=== PATIENT | female | born 1985 | race Hispanic/Latino ===

== ENCOUNTER 2019-04-16 20:59 | Emergency (ER) | payer SELFPAY ==
[2019-04-16 22:03] LABS: Urine Blood NEGATIVE (NEG); Urine Glucose NEGATIVE (NEG); Urine Protein NEGATIVE (NEG); Urine Specific Gravity 1.025 (1.005-1.030)
[2019-04-16 22:07] LABS: Absolute Lymphocytes (CBC) 2.2 K/uL (0.7-4.9); Basophils % 0.4 % (0-1.3); Hematocrit 39.6 % (36.0-45.0); Lymphocytes % 27.4 % (15.3-44.8); MPV 7.8 fL (7.6-11.3); RBC Red Blood Cell Count 4.48 M/uL (3.86-4.86)
[2019-04-16 22:40] LABS: BUN Blood Urea Nitrogen 15 mg/dL (7-18); Bicarbonate 27 mmol/L (21-32); Glucose Level 86 mg/dL (74-106); HCG, Quantitative 945 mIU/mL (1-3); Potassium 3.6 mmol/L (3.5-5.1); Sodium Level 141 mmol/L (136-145)
--- NOTE | 2019-04-16 22:44 | ER ---
Nurse's Notes [facility] Name: Marline Jacobs Age: 33 yrs Sex: Female : 1985 Arrival Date: 04/16/2019 Time: 21:04 Bed 26 Private MD: Diagnosis: state Presentation: 04/16 21:13 Presenting complaint: Patient states: Abdominal pain that moves over her entire abdomen aj1 and pelvis for the past 4 days. Denies N/V/D. Patient reports that she found out this morning that she is , she is unsure how far along she is. Denies vaginal bleeding or discharge. Transition of care: patient was not received from another setting of care. Onset of symptoms was April 16, 2019. Risk Assessment: Do you want to hurt yourself or someone else? Patient reports no desire to harm self or others. Initial Sepsis Screen: Does the patient meet any 2 criteria? No. Patient's initial sepsis screen is negative. Does the patient have a suspected source of infection? No. Patient's initial sepsis screen is negative. Care prior to arrival: None. 21:13 Method Of Arrival: Ambulatory aj 21:13 Acuity: LAUREL 3 fc Triage Assessment: 21:14 General: Appears in no apparent distress. comfortable, Behavior is calm, cooperative, aj1 appropriate for age. Pain: Complains of pain in abdomen and pelvis Pain currently is 3 out of 10 on a pain scale. Neuro: Level of Consciousness is awake, alert, obeys commands. Cardiovascular: Patient's skin is warm and dry. Respiratory: Airway is patent Respiratory effort is even, unlabored, Respiratory pattern is regular, symmetrical. GI: Patient currently denies constipation, cramping, diarrhea, nausea, rectal bleeding, vomiting. : Denies discharge, vaginal bleeding. 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 - Social history:: Smoking status: Patient/guardian denies using tobacco, Patient/guardian denies using alcohol, street drugs. - Ebola Screening: : Patient denies travel to an Ebola-affected area in the 21 days before illness onset. Screenin:20 Abuse screen: Denies threats or abuse. Denies injuries from another. Nutritional ca1 screening: No deficits noted. Tuberculosis screening: No symptoms or risk factors identified. Fall Risk None identified. Assessment: 21:20 General: Appears in no apparent distress. comfortable, Behavior is calm, cooperative, ca1 appropriate for age. Pain: Complains of pain in right lower quadrant and pelvis Pain currently is 4 out of 10 on a pain scale. Pain began 4 days ago Is intermittent. Neuro: Level of Consciousness is awake, alert, obeys commands, Oriented to person, place, time, situation. Cardiovascular: Heart tones S1 S2 present Capillary refill < 3 seconds Patient's skin is warm and dry. Pulses are all present. Respiratory: Airway is patent Respiratory effort is even, unlabored, Respiratory pattern is regular, symmetrical, Breath sounds are clear bilaterally. GI: Abdomen is round non-distended, Bowel sounds present X 4 quads. Abd is soft X 4 quads Abdomen is tender to palpation in right lower quadrant. : No deficits noted. No signs and/or symptoms were reported regarding the genitourinary system. EENT: No deficits noted. No signs and/or symptoms were reported regarding the EENT system. Derm: Skin is intact, is healthy with good turgor, Skin is pink, warm \T\ dry. Musculoskeletal: Circulation, motion, and sensation intact. Capillary refill < 3 seconds, Range of motion: intact in all extremities. 22:07 Reassessment: Patient appears in no apparent distress at this time. Patient and/or ca1 family updated on plan of care and expected duration. Pain level reassessed. Patient is alert, oriented x 3, equal unlabored respirations, skin warm/dry/pink. 23:28 Reassessment: PATIENT DISCHARGED AFTER EXPLAINING THE RESULTS OF DIAGNOSTICS. PATIENT rv IS AMBULATORY, ALERT AND ORIENTED. Vital Signs: 21:14 BP 116 / 83; Pulse 68; Resp 16; Temp 97.9; Pulse Ox 100% on R/A; Weight 68.04 kg (R); aj1 Height 5 ft. 1 in. (154.94 cm) (R); Pain 3/10; 22:07 BP 121 / 80; Pulse 71; Resp 16 S; Pulse Ox 100% on R/A; ca1 23:27 BP 119 / 76; Pulse 68; Resp 16; Pulse Ox 100% on R/A; rv 21:14 Body Mass Index 28.34 (68.04 kg, 154.94 cm) [facility] ED Course: 21:04 Patient arrived in ED. mr 21:06 [facility]alta [facility]C [facility] kb 21:06 sOmin Lewis MD is Attending Physician. kb 21:14 Triage completed. aj1 21:14 Arm band placed on Patient placed in an exam room. aj1 21:20 Patient has correct armband on for positive identification. Placed in gown. Bed in low ca1 position. Call light in reach. Side rails up X 1. Pulse ox on. NIBP on. Warm blanket given. 21:48 Rabia Cross, RN is Primary Nurse. ca1 21:56 No provider procedures requiring assistance completed. Initial lab(s) drawn, by md, ca1 sent to lab. Inserted saline lock: 22 gauge in right antecubital area, using aseptic technique. Blood collected. 22:01 US Transvaginal Ob In Process Unspecified. EDMS 23:29 IV discontinued, intact, bleeding controlled, No redness/swelling at site. Pressure rv dressing applied. Administered Medications: No medications were administered Outcome: 22:43 Discharge ordered by MD. kb 23:28 Discharged to home ambulatory, with family. rv 23:28 Condition: good 23:28 Discharge instructions given to patient, Instructed on discharge instructions, follow up and referral plans. Demonstrated understanding of instructions, follow-up care. 23:30 Patient left the ED. rv Signatures: Dispatcher [employer] EDWI Geena Villalta FNP-C FNP-Marline Douglas, RN RN [facility] Skinny Marisol RazoNataliya RN RN Mando Hurtado RN RN rv Acob, Cheryl, RN PATRICIA ca1 Corrections: (The following items were deleted from the chart) 21:57 21:13 Acuity: LAUREL 4 [facility]
--- NOTE | 2019-04-16 22:45 | EDPHYS ---
Physician Documentation [facility] Name: Marline Jacobs Age: 33 yrs Sex: Female : 1985 Arrival Date: 04/16/2019 Time: 21:04 Bed 26 Private MD: ED Physician Osmin Lewis HPI: 04/16 22:50 This 33 yrs old Female presents to ER via Ambulatory with complaints of kb , Abdominal Pain. 22:50 The patient presents to the emergency department with abdominal pain. course: kb care: none. Previous pregnancies: in previous pregnancies patient has had. Associated signs and symptoms: Pertinent positives: abdominal pain, Pertinent negatives: vaginal bleeding. The patient has not experienced similar symptoms in the past. The patient has not recently seen a physician. Pt reports nonspecific abd pain that started 4-5 days ago. Found out she was today so she came in . 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 - Social history:: Smoking status: Patient/guardian denies using tobacco, Patient/guardian denies using alcohol, street drugs. - Ebola Screening: : Patient denies travel to an Ebola-affected area in the 21 days before illness onset. ROS: 22:32 Constitutional: Negative for fever, chills, and weight loss, ENT: Negative for injury, kb pain, and discharge, Neck: Negative for injury, pain, and swelling, Cardiovascular: Negative for chest pain, palpitations, and edema, Respiratory: Negative for shortness of breath, cough, wheezing, and pleuritic chest pain, Back: Negative for injury and pain, : Negative for injury, bleeding, discharge, and swelling, MS/Extremity: Negative for injury and deformity, Skin: Negative for injury, rash, and discoloration, Neuro: Negative for headache, weakness, numbness, tingling, and seizure. 22:32 Abdomen/GI: Positive for abdominal pain, Negative for nausea, vomiting, and diarrhea, constipation, abdominal cramps, abdominal distension, anorexia. Exam: 22:32 Constitutional: This is a well developed, well nourished patient who is awake, alert, kb and in no acute distress. Head/Face: Normocephalic, atraumatic. ENT: Nares patent. No nasal discharge, no septal abnormalities noted. Tympanic membranes are normal and external auditory canals are clear. Oropharynx with no redness, swelling, or masses, exudates, or evidence of obstruction, uvula midline. Mucous membranes moist. Neck: Trachea midline, no thyromegaly or masses palpated, and no cervical lymphadenopathy. Supple, full range of motion without nuchal rigidity, or vertebral point tenderness. No Meningismus. Chest/axilla: Normal chest wall appearance and motion. Nontender with no deformity. No lesions are appreciated. Cardiovascular: Regular rate and rhythm with a normal S1 and S2. No gallops, murmurs, or rubs. Normal PMI, no JVD. No pulse deficits. Respiratory: Lungs have equal breath sounds bilaterally, clear to auscultation and percussion. No rales, rhonchi or wheezes noted. No increased work of breathing, no retractions or nasal flaring. Abdomen/GI: Soft, non-tender, with normal bowel sounds. No distension or tympany. No guarding or rebound. No evidence of tenderness throughout. Back: No spinal tenderness. No costovertebral tenderness. Full range of motion. Skin: Warm, dry with normal turgor. Normal color with no rashes, no lesions, and no evidence of cellulitis. MS/ Extremity: Pulses equal, no cyanosis. Neurovascular intact. Full, normal range of motion. Neuro: Awake and alert, GCS 15, oriented to person, place, time, and situation. Cranial nerves II-XII grossly intact. Motor strength 5/5 in all extremities. Sensory grossly intact. Cerebellar exam normal. Normal gait. Vital Signs: 21:14 BP 116 / 83; Pulse 68; Resp 16; Temp 97.9; Pulse Ox 100% on R/A; Weight 68.04 kg (R); aj1 Height 5 ft. 1 in. (154.94 cm) (R); Pain 3/10; 22:07 BP 121 / 80; Pulse 71; Resp 16 S; Pulse Ox 100% on R/A; ca1 23:27 BP 119 / 76; Pulse 68; Resp 16; Pulse Ox 100% on R/A; rv 21:14 Body Mass Index 28.34 (68.04 kg, 154.94 cm) aj1 MDM: 21:23 Patient medically screened. juan 22:33 Data reviewed: vital signs, nurses notes. Data interpreted: Pulse oximetry: on room air kb is 100 %. Interpretation: normal. 22:43 Counseling: I had a detailed discussion with the patient and/or guardian regarding: the kb historical points, exam findings, and any diagnostic results supporting the discharge/admit diagnosis, lab results, radiology results, the need for outpatient follow up, an OB/Gyne specialist, to return to the emergency department if symptoms worsen or persist or if there are any questions or concerns that arise at home. 04/16 21:30 Order name: Urine --Ancillary (enter results); Complete Time: 22:02 kb 04/16 21:30 Order name: Urine Dipstick--Ancillary (enter results); Complete Time: 22:02 kb 04/16 21:48 Order name: Quantitative Hcg; Complete Time: 22:39 kb 04/16 21:48 Order name: Abo/rh Typing; Complete Time: 22:39 kb 04/16 21:48 Order name: Basic Metabolic Panel; Complete Time: 22:39 kb 04/16 21:48 Order name: CBC with Diff; Complete Time: 22:12 kb 04/16 21:24 Order name: Urine Dipstick-Ancillary (obtain specimen); Complete Time: 21:44 kb 04/16 21:24 Order name: Urine Test (obtain specimen); Complete Time: 21:44 kb 04/16 21:29 Order name: US Transvaginal Ob kb 04/16 21:48 Order name: Labs collected and sent; Complete Time: 21:52 kb 04/16 21:48 Order name: IV Saline Lock; Complete Time: 21:52 kb Administered Medications: No medications were administered Disposition: 04/16/19 22:43 Discharged to Home. Impression: state. - Condition is Stable. - Discharge Instructions: Abdominal Pain During , [id number]-Hsik. - Medication Reconciliation Form, Thank You Letter, Antibiotic Education, Prescription Opioid Use form. - Follow up: Emergency Department; When: As needed; Reason: Worsening of condition. Follow up: Private Physician; When: 2 - 3 days; Reason: Recheck today's complaints, Continuance of care, Re-evaluation by your physician. Signatures: Dispatcher [employer] Geena Bailey, CHAN-Mauro RODRÍGUEZP-Marline Douglas, RN RN aj1 Osmin Lewis MD MD cha Vicente, Ronaldo RN RN rv Corrections: (The following items were deleted from the chart) 23:30 22:43 04/16/2019 22:43 Discharged to Home. Impression: state. Condition is rv Stable. Forms are Medication Reconciliation Form, Thank You Letter, Antibiotic Education, Prescription Opioid Use. Follow up: Emergency Department; When: As needed; Reason: Worsening of condition. Follow up: Private Physician; When: 2 - 3 days; Reason: Recheck today's complaints, Continuance of care, Re-evaluation by your physician. kb
[2019-04-16 23:49] VITALS: TEMP 97.9; O2SAT 100
[2019-04-16 23:52] VITALS: BP 119/76
--- NOTE | 2019-04-17 09:15 | RAD REPORT ---
EXAM DESCRIPTION: US - Transvaginal OB - 04/16/2019 9:59 pm CLINICAL HISTORY: ABD CRAMPING, Preliminary findings provided at the time of the study. COMPARISON: None. TECHNIQUE: Endovaginal sonography performed. FINDINGS: Endometrium is thickened at 13 mm. No gestational sac or sac remnant identifiable. No srinivas valentín, mass or other endometrial finding. There is no myometrial mass present. Uterus is normal size. Right ovary is normal size and shows normal blood flow in the ovarian stroma. No right adnexal abnorm ality. No blood or fluid in the cul de sac. Left ovary is enlarged by a complex 2.6 centimeter cyst. There i s echogenic debris that may be hemorrhagic material within this cyst. This does not have the appearan ce of an extra uterine gestation. IMPRESSION: No intrauterine gestational sac or sac remnant identified. No suspicious finding in the endometrial cavity. No evidence for an ectopic . Patient has a complex 2.6 centimeter left ovarian cyst. This cy stic structure is not suspected to be an ectopic .
== END 2019-04-16 23:30 | disposition home or self-care (01) ==
LOC: ER 20:59
DX: O26.891 Other specified pregnancy related conditions, first trimester (principal); Z33.1 Pregnant state, incidental
CPT/HCPCS: 36415; 76817; 80048; 81003; 81025; 84702; 85025; 86900; 86901; 99284

== ENCOUNTER 2024-06-02 08:53 | Emergency (ER) | payer SELFPAY ==
[2024-06-02 09:41] LABS: Absolute Eosinophils 0.2 K/uL (0-0.5); Absolute Lymphocytes (CBC) 1.6 K/uL (0.7-4.9); Absolute Monocytes 0.4 K/uL (0.1-1.3); Absolute Neutrophil 4.9 K/uL (1.8-8.0); Basophils % 0.4 % (0-1.3); Eosinophils % 2.5 % (0-4.4); Hematocrit 41.4 % (36.0-45.0); Hemoglobin 14.2 g/dL (12.0-15.0); Lymphocytes % 22.4 % (15.3-44.8); MCH 29.6 pg (27.0-35.0); MCHC 34.3 g/dL (32.0-36.0); MCV 86.4 fL (80-100); MPV 7.3 fL (7.6-11.3); Monocytes % 5.8 % (3.3-12.3); Neutrophils % 68.9 % (41.7-73.7); Nucleated Red Blood Cells % 0.2 % (0-0); Platelets 296 thou/uL (152-406); Red Cell Distribution Width 13.6 % (12.1-15.2)
--- NOTE | 2024-06-02 09:56 | RAD REPORT ---
Procedure: Chest Single View HISTORY: Chest pain COMPARISON: none FINDINGS: The lungs appear clear of acute infiltrate. No significant pleural effusion noted. The heart is normal size. IMPRESSION: No acute abnormality is displayed.
[2024-06-02 10:04] LABS: ALT/SGPT 20 U/L (13-56); Albumin 3.7 g/dL (3.4-5.0); Albumin/Globulin Ratio 0.8 (1.1-1.8); Alkaline Phosphatase 81 U/L (45-117); BUN Blood Urea Nitrogen 10 mg/dL (7-18); Bicarbonate 29 mEq/L (21-32); Bilirubin Total 0.3 mg/dL (0.2-1.0); Globulin 4.4 g/dL (2.3-3.5); Glomerular Filtration Rate 104 ml/min (=/>90); Glucose Level 102 mg/dL (74-106); Lipase 30 U/L (13-75); Magnesium 2.1 mg/dL (1.6-2.4); NT PRO-BNP 12 pg/mL (<125); Protein, Total 8.1 g/dL (6.4-8.2); Sodium Level 137 mEq/L (136-145)
[2024-06-02 10:05] LABS: AST/SGOT < 10 U/L (15-37); Bilirubin Direct < 0.2 mg/dL (0-0.2); Bilirubin Indirect, Calculated 0.1 mg/dL (0.2-0.8); Troponin High Sensitivity < 3.0 pg/mL (<58.9)
--- NOTE | 2024-06-02 11:37 | ER ---
Nurse's Notes [facility] Name: Marline Jacobs Age: 39 yrs Sex: Female : 1985 Arrival Date: 06/02/2024 Time: 08:53 Bed 15 Private MD: Diagnosis: Abdominal pain, Generalized Presentation: 06/02 09:36 Chief complaint: Patient states: chest discomfort/ upper abd pain that began 5 days ss ago. Pt though it may be reflux, so she tried some medications at home, but it does not seem to be helping. Coronavirus screen: Client denies travel out of the [place] in the last 14 days. Ebola Screen: Patient denies exposure to infectious person. Patient denies travel to an Ebola-affected area in the 21 days before illness onset. Initial Sepsis Screen: Does the patient meet any 2 criteria? No. Patient's initial sepsis screen is negative. Does the patient have a suspected source of infection? No. Patient's initial sepsis screen is negative. Risk Assessment: Do you want to hurt yourself or someone else? Patient reports no desire to harm self or others. Onset of symptoms was May 28, 2024. 09:36 Method Of Arrival: Ambulatory ss 09:36 Acuity: LAUREL 3 ss Triage Assessment: 09:45 General: Appears in no apparent distress. Behavior is cooperative, appropriate for age, bp anxious. Pain: Complains of pain in chest. EENT: No deficits noted. Neuro: No deficits noted. Cardiovascular: Reports chest pain. Respiratory: No deficits noted. GI: No signs and/or symptoms were reported involving the gastrointestinal system. : No signs and/or symptoms were reported regarding the genitourinary system. Derm: No deficits noted. Musculoskeletal: No deficits noted. Historical: - Allergies: 09:36 No Known Allergies; ss - Home Meds: 09:36 None [Active]; ss - PMHx: 09:36 Asthma; ss - PSHx: 09:36 None; ss - Immunization history:: Client reports having NOT received the Covid vaccine. - Infectious Disease History:: Denies. - Social history:: Smoking status: Patient denies any tobacco usage or history of. Screenin:38 [facility] ED Fall Risk Assessment (Adult) History of falling in the last 3 months, ss including since admission No falls in past 3 months (0 pts) Confusion or Disorientation No (0 pts) Intoxicated or Sedated No (0 pts) Impaired Gait No (0 pts) Mobility Assist Device Used No (0 pt) Altered Elimination No (0 pt) Score/Fall Risk Level 0 - 2 = Low Risk Oriented to surroundings, Maintained a safe environment. Abuse screen: Denies threats or abuse. Denies injuries from another. Nutritional screening: No deficits noted. Tuberculosis screening: Never had TB. Assessment: 09:38 Reassessment: Pt to XRAY at this time. ss 10:19 Reassessment: Patient appears in no apparent distress at this time. Patient is alert, bp oriented x 3, equal unlabored respirations, skin warm/dry/pink. Pain: Pain does not radiate. Pain began 2-3 days ago. Vital Signs: 09:36 Resp 16; Weight 72.57 kg; Height 5 ft. 1 in. ; Pain 5/10; ss 09:45 BP 108 / 76; Pulse 89; Resp 16; Temp 98; Pulse Ox 99% ; bp 10:20 BP 109 / 76; Pulse 64; Resp 16; Pulse Ox 99% ; bp 11:42 BP 114 / 82; Pulse 62; Resp 16; Pulse Ox 99% ; bp 09:36 Body Mass Index 30.23 (72.57 kg, 154.94 cm) ss 09:36 Pain Scale: Adult ss ED Course: 08:56 Patient arrived in ED. ra3 09:03 Marissa Leon MD is Attending Physician. sp3 09:26 Initial lab(s) drawn, by me, sent to lab. Initial lab(s) drawn, by ED staff. Inserted bc6 saline lock: 20 gauge in left antecubital area, using aseptic technique. Blood collected. Flushed with 10 mL NS. Inserted saline lock:. 09:35 Lora Everett, RN is Primary Nurse. ss 09:37 Triage completed. ss 09:38 Patient moved to radiology AMBULATORY FROM [facility]. md2 09:38 Patient has correct armband on for positive identification. ss 09:43 X-ray completed. Patient taken to [facility]. dex 09:45 Chest Single View In Process Unspecified. EDMS 11:42 No provider procedures requiring assistance completed. IV discontinued, intact, bp bleeding controlled, No redness/swelling at site. Pressure dressing applied. Patient maintains SpO2 saturation greater than 95% on room air. 11:42 Provided Education on: n/a. Client placed on continuous cardiac and pulse oximetry bp monitoring. NIBP monitoring applied. air sampling and monitoring on. Pulse ox on. NIBP on. 11:48 Arm band placed on. bp Administered Medications: No medications were administered Medication: 11:48 VIS not applicable for this client. bp Outcome: 11:37 Discharge ordered by . sp3 11:48 Discharged to home ambulatory, bp 11:48 Condition: stable 11:48 Discharge instructions given to patient, Instructed on discharge instructions, follow up and referral plans. medication usage, Demonstrated understanding of instructions, follow-up care, medications, Prescriptions given X 1, 11:48 Patient left the ED. bp Signatures: Dispatcher [employer] EDMS Lora Everett, RN RN Nabil Childers RN RN bp Marsisa Leon MD MD sp3 Ashly Sol md2 Stephanie Baxter6 Jeanna Mcclelland ra3
--- NOTE | 2024-06-02 11:38 | EDPHYS ---
Physician Documentation [facility] Name: Marline Jacobs Age: 39 yrs Sex: Female : 1985 Arrival Date: 06/02/2024 Time: 08:53 Bed 15 Private MD: ED Physician Marissa Leon HPI: 06/02 09:49 This 39 yrs old Female presents to ER via Ambulatory with complaints of Chest sp3 Pain - X5days. 09:49 39-year-old with history of asthma now presents with 5-day history of chest pain sp3 epigastric pain worse when she lays down. Patient tried 2 days of omeprazole which did not help. She denies any fever, neck pain, shortness of breath, upper chest pain, upper back pain, lower abdominal pain, syncope, near syncope, rash, known sick contacts, prolonged immobilization, prior DVT or PE, smoking, or any other signs or symptoms on ROS at this time. Patient is currently not having pain while in the ED.. Historical: - Allergies: 09:36 No Known Allergies; ss - Home Meds: 09:36 None [Active]; ss - PMHx: 09:36 Asthma; ss - PSHx: 09:36 None; ss - Immunization history:: Client reports having NOT received the Covid vaccine. - Infectious Disease History:: Denies. - Social history:: Smoking status: Patient denies any tobacco usage or history of. ROS: 09:51 Constitutional: Negative for fever, chills, and weight loss, Eyes: Negative for injury, sp3 pain, redness, and discharge, ENT: Negative for injury, pain, and discharge, Neck: Negative for injury, pain, and swelling, Respiratory: Negative for shortness of breath, cough, wheezing, and pleuritic chest pain, Back: Negative for injury and pain, MS/Extremity: Negative for injury and deformity, Skin: Negative for injury, rash, and discoloration, Neuro: Negative for headache, weakness, numbness, tingling, and seizure, Psych: Negative for depression, anxiety, suicide ideation, homicidal ideation, and hallucinations, Allergy/Immunology: Negative for hives, rash, and allergies, Endocrine: Negative for neck swelling, polydipsia, polyuria, polyphagia, and marked weight changes, 09:51 All other systems are negative, Exam: 09:51 Constitutional: This is a well developed, well nourished patient who is awake, alert, sp3 and in no acute distress. Head/Face: Normocephalic, atraumatic. Eyes: Pupils equal round and reactive to light, extra-ocular motions intact. Lids and lashes normal. Conjunctiva and sclera are non-icteric and not injected. Cornea within normal limits. Periorbital areas with no swelling, redness, or edema. Neck: Trachea midline, no thyromegaly or masses palpated, and no cervical lymphadenopathy. Supple, full range of motion without nuchal rigidity, or vertebral point tenderness. No Meningismus. Chest/axilla: Normal chest wall appearance and motion. Nontender with no deformity. No lesions are appreciated. Cardiovascular: Regular rate and rhythm with a normal S1 and S2. No gallops, murmurs, or rubs. Normal PMI, no JVD. No pulse deficits. Respiratory: Lungs have equal breath sounds bilaterally, clear to auscultation and percussion. No rales, rhonchi or wheezes noted. No increased work of breathing, no retractions or nasal flaring. Abdomen/GI: Soft, non-tender, with normal bowel sounds. No distension or tympany. No guarding or rebound. No evidence of tenderness throughout. Back: No spinal tenderness. No costovertebral tenderness. Full range of motion. Skin: Warm, dry with normal turgor. Normal color with no rashes, no lesions, and no evidence of cellulitis. MS/ Extremity: Pulses equal, no cyanosis. Neurovascular intact. Full, normal range of motion. Neuro: Awake and alert, GCS 15, oriented to person, place, time, and situation. Cranial nerves II-XII grossly intact. Motor strength 5/5 in all extremities. Sensory grossly intact. Cerebellar exam normal. Normal gait. Psych: Awake, alert, with orientation to person, place and time. Behavior, mood, and affect are within normal limits. 09:51 ECG was reviewed by the Attending Physician. EKG demonstrates normal sinus rhythm at 70 bpm with normal intervals, normal QRS, normal axis, normal ST/T-segment's without evidence of acute ischemia. Vital Signs: 09:36 Resp 16; Weight 72.57 kg; Height 5 ft. 1 in. ; Pain 5/10; ss 09:45 BP 108 / 76; Pulse 89; Resp 16; Temp 98; Pulse Ox 99% ; bp 10:20 BP 109 / 76; Pulse 64; Resp 16; Pulse Ox 99% ; bp 11:42 BP 114 / 82; Pulse 62; Resp 16; Pulse Ox 99% ; bp 09:36 Body Mass Index 30.23 (72.57 kg, 154.94 cm) ss 09:36 Pain Scale: Adult ss MDM: 09:17 Medical Screening Exam initiated sp3 09:51 Data reviewed: vital signs, nurses notes, lab test result(s), EKG, radiologic studies. sp3 ED course: 39-year-old female with PMH above now with 5 days of chest pain. Differential diagnosis includes gastritis, GERD, biliary pathology, pancreatitis, and to a much lesser degree any cardiac or vascular etiology. EKG is normal. Chest x-ray and labs pending. If workup negative, we will discharge patient home on Protonix follow-up with GI as needed.. 11:36 ED course: Full workup negative including labs and chest x-ray. Patient continues to be sp3 stable with normal vital signs. Will discharge patient home on Protonix and GI follow-up.. 11 09:19 Order name: Basic Metabolic Panel; Complete Time: 11:36 EDMS 06/02 09:19 Order name: CBC with Automated Diff; Complete Time: 11:36 EDMS 06/02 09:19 Order name: Liver (Hepatic) Function; Complete Time: 11:36 EDMS 06/02 09:19 Order name: Magnesium; Complete Time: 11:36 EDMS 06/02 09:19 Order name: NT PRO-BNP; Complete Time: 11:36 EDMS 06/02 09:19 Order name: Troponin High Sensitivity; Complete Time: 11:36 EDMS 06/02 09:54 Order name: Lipase; Complete Time: 11:36 EDMS 06/02 09:19 Order name: Chest Single View; Complete Time: 11:36 EDMS 06/02 09:04 Order name: Cardiac monitoring; Complete Time: 09:47 sp3 06/02 09:04 Order name: EKG - Nurse/Tech; Complete Time: 09:35 sp3 06/02 09:04 Order name: IV Saline Lock; Complete Time: 09:35 sp3 06/02 09:04 Order name: Labs collected and sent; Complete Time: 09:35 sp3 06/02 09:04 Order name: O2 Per Protocol; Complete Time: 09:36 sp3 06/02 09:04 Order name: O2 Sat Monitoring; Complete Time: 09:36 sp3 Administered Medications: No medications were administered Disposition Summary: 06/02/24 11:37 Discharge Ordered Notes: Location: Home sp3 Condition: Stable sp3 Diagnosis - Abdominal pain, Generalized sp3 Followup: sp3 - With: Private Physician - When: Upon discharge from the Emergency Department - Reason: Continuance of care Discharge Instructions: - Discharge Summary Sheet sp3 - Abdominal Pain, Adult sp3 Forms: - Medication Reconciliation Form sp3 - Antibiotic Education sp3 - Prescription Opioid Use sp3 - Patient Portal Instructions sp3 - Leadership Thank You Letter sp3 Prescriptions: - Protonix 40 mg Oral Tablet - take 1 tablet ORAL route once daily; 30 tablet; Refills: 0, Product Selection sp3 Permitted Signatures: Dispatcher [employer] EDLora Conway RN RN ss Patel, Setul, MD MD sp3 Corrections: (The following items were deleted from the chart) 10:53 10:53 Chest Single View+RAD.RAD.BRZ ordered. EDMS EDMS 10:54 10:54 LIPASE+C.LAB.BRZ ordered. EDMS EDMS
[2024-06-02 12:09] VITALS: TEMP 98; O2SAT 99
[2024-06-02 12:16] VITALS: BP 114/82
== END 2024-06-02 11:48 | disposition home or self-care (01) ==
LOC: ER 08:53
DX: R10.84 Generalized abdominal pain (principal); R07.9 Chest pain, unspecified
CPT/HCPCS: 36415; 71045; 80048; 80076; 83690; 83735; 83880; 84484; 85025; 99284